=== PATIENT | female | born 1955 | race Caucasian/White ===

== ENCOUNTER 2018-03-24 09:30 | Day surgery (SDC) | payer BC ==
[2018-03-24] MEDS ORDERED: MIDAZOLAM 1 MG/ML 2 ML INJ ×2 (11:03→11:04)
[2018-03-24] MEDS ORDERED: FENTAnyl 50 MCG/ML VIAL (11:04)
== END 2018-03-24 12:12 | disposition home or self-care (01) ==
LOC: GIL 09:30
DX: Z12.11 Encounter for screening for malignant neoplasm of colon (principal); K64.8 Other hemorrhoids
CPT/HCPCS: 45378